=== PATIENT | female | born 1945 | race Caucasian/White ===

== ENCOUNTER 2025-01-15 21:13 | Inpatient (IN) | payer MEDICARE, OTHER ==
[~2025-01-15] VITALS: Ht 149.9 cm; Wt 39.5 kg
[2025-01-15 21:56] LABS: COVID AG,FIA SOURCE NASAL SWAB
[2025-01-15 22:00] LABS: APPEARANCE,URINE CLEAR (CLEAR); GLUCOSE, URINE (UA) >=1000 mg/dL (NEGATIVE); LEUKOCYTE ESTERASE ,URINE NEGATIVE (NEGATIVE); NITRATE,URINE NEGATIVE (NEGATIVE); OCCULT BLOOD,URINE NEGATIVE (NEGATIVE); PH,URINE DRUG SCREEN 5.5 (5.0-8.0); SPECIFIC GRAVITIY, URINE 1.032 (1.003-1.030)
[2025-01-15 22:05] LABS: PLATELET COUNT (AUTO) 248 K/uL (150-450); RED BLOOD CELL COUNT(AUTO) 4.55 MIL/uL (4.00-5.20); RED CELL DISTRIBUTION WIDTH 13.3 % (11.5-14.5); WHITE BLOOD COUNT (AUTO) 8.9 K/uL (4.5-11.0)
[2025-01-15 22:07] LABS: AMPHET/METH SCREEN,URINE NEGATIVE (NEGATIVE); BARBITURATE SCREEN, URINE NEGATIVE (NEGATIVE); CANNABINOID SCREEN,URINE NEGATIVE (NEGATIVE); COCAINE SCREEN,URINE NEGATIVE (NEGATIVE); METHADONE SCREEN, URINE NEGATIVE (NEGATIVE)
[2025-01-15 22:08] LABS: ALCOHOL, URINE DRUG SCREEN NEGATIVE (NEGATIVE)
[2025-01-15 22:13] LABS: CALCIUM, TOTAL 9.1 mg/dL (8.8-10.5); CREATININE 0.85 mg/dL (0.60-1.30); GLOMERULAR FILTR. RATE CALC > 60 mL/min (>60); SODIUM SERUM 132 mmol/L (136-145); UREA NITROGEN, BLOOD 20 mg/dL (7-18)
[2025-01-15 22:15] LABS: SARS-COV2 (COVID) ANTIGEN,FIA Negative (Negative)
[2025-01-15 22:17] LABS: GLUCOSE,RANDOM 425 mg/dL (70-110)
[2025-01-15 22:33] LABS: SQUAMOUS EPITHELIAL CELL,UR Rare /LPF (None Seen)
[2025-01-15] MEDS: SODIUM CHLORIDE 0.9% 1,000 ML IV ONE (22:49)
[2025-01-15] MEDS: INSULIN REGULAR, HUMAN 100 UNITS/ML IVP ONE (22:56)
[2025-01-16] MEDS ORDERED: ZOLPIDEM TARTRATE 10 MG TABLET PO PRN (00:45)
[2025-01-16 04:19] VITALS: BP 124/95; PULSE 66; RESP 17; TEMP 97.1; O2SAT 99
[2025-01-16 05:19] VITALS: BP 124/95; PULSE 66; RESP 17; TEMP 97.1; O2SAT 99
[2025-01-16 07:25] LABS: GLUCOMETER DEV NAME(LOC) BV3N.2; GLUCOSE,POINT OF CARE 324 MG/DL (70-110)
[2025-01-16 08:36] VITALS: BP 139/65; PULSE 71; RESP 16; TEMP 97.9; O2SAT 97
[2025-01-16] MEDS: INSULIN LISPRO 100 UNITS/ML SQ PRN (11:12)
[2025-01-16] MEDS ORDERED: GLUCAGON,HUMAN RECOMBINANT 1 MG VIAL IM PRN (11:15)
[2025-01-16 11:26] LABS: GLUCOMETER DEV NAME(LOC) BV3N.2; GLUCOSE,POINT OF CARE 399 MG/DL (70-110)
[2025-01-16] MEDS ORDERED: OLANZapine 5 MG RAPDIS TABLET PO PRN (12:15)
[2025-01-16] MEDS ORDERED: ACETAMINOPHEN 325 MG TABLET PO PRN (12:15)
[2025-01-16] MEDS ORDERED: LOPERAMIDE HCL 2 MG CAPSULE PO PRN (12:15)
[2025-01-16] MEDS ORDERED: PROMETHAZINE HCL 25 MG TABLET PO PRN (12:15)
[2025-01-16] MEDS ORDERED: MAGNESIUM HYDROXIDE SUSPENSION 30 ML UDCUP PO PRN (12:15)
[2025-01-16] MEDS ORDERED: GuaiFENesin/D-METHORPHAN [SUGAR-FREE] 200-20MG/10 ML SYRUP UDCUP PO PRN (12:15)
[2025-01-16] MEDS ORDERED: MAG HYDROX/ALUMINUM HYD/SIMETH ES 30 ML SUSPENSION UDCUP PO PRN (12:15)
[2025-01-16] MEDS: THIAMINE 100 MG TABLET PO SCH (16:34)
[2025-01-16] MEDS: OMEGA-3/DHA/EPA/FISH OIL 500 MG CAPSULE PO SCH (16:35)
[2025-01-16] MEDS: TUBERCULIN, PURIFIED PROTEIN DERIVATIVE 5 TU/0.1 ML SYRINGE ID ONE (16:35)
[2025-01-16 16:50] LABS: GLUCOMETER DEV NAME(LOC) BV3N.2; GLUCOSE,POINT OF CARE 334 MG/DL (70-110)
[2025-01-16 20:18] VITALS: BP 125/65; PULSE 61; RESP 18; TEMP 97.7; O2SAT 98
[2025-01-16 20:26] LABS: GLUCOMETER DEV NAME(LOC) BV3N.2; GLUCOSE,POINT OF CARE 252 MG/DL (70-110)
[2025-01-16] MEDS: OLANZapine 5 MG RAPDIS TABLET PO SCH (20:45)
[2025-01-16] MEDS: INSULIN GLARGINE,HUM.REC.ANLOG 100 UNITS/ML SQ SCH (20:52)
[2025-01-17 06:25] LABS: GLUCOMETER DEV NAME(LOC) BV3N.2; GLUCOSE,POINT OF CARE 193 MG/DL (70-110)
[2025-01-17 08:12] VITALS: BP 116/65; PULSE 69; RESP 16; TEMP 97.6; O2SAT 97
[2025-01-17] MEDS: MULTIVITAMINS WITH MINERALS, THERAPEUTIC TABLET PO SCH (09:00)
[2025-01-17] MEDS: FOLIC ACID 1 MG TABLET PO SCH (09:00)
[2025-01-17 12:25] LABS: GLUCOMETER DEV NAME(LOC) BV3N.2; GLUCOSE,POINT OF CARE 241 MG/DL (70-110)
[2025-01-17 16:21] LABS: GLUCOMETER DEV NAME(LOC) BV3N.2; GLUCOSE,POINT OF CARE 351 MG/DL (70-110)
[2025-01-17 20:17] VITALS: BP 128/75; PULSE 83; RESP 17; TEMP 97.2; O2SAT 98
[2025-01-17] MEDS: OLANZapine 10 MG RAPDIS TABLET PO SCH (21:00)
[2025-01-17 21:06] LABS: GLUCOMETER DEV NAME(LOC) BV3N.2; GLUCOSE,POINT OF CARE 205 MG/DL (70-110)
[2025-01-18 06:31] LABS: GLUCOMETER DEV NAME(LOC) BV3N.2; GLUCOSE,POINT OF CARE 100 MG/DL (70-110)
[2025-01-18 08:47] VITALS: BP 110/69; PULSE 79; RESP 16; TEMP 97.6; O2SAT 100
[2025-01-18 11:30] LABS: GLUCOMETER DEV NAME(LOC) BV3N.2; GLUCOSE,POINT OF CARE 286 MG/DL (70-110)
[2025-01-18 16:45] LABS: GLUCOMETER DEV NAME(LOC) BV3N.2; GLUCOSE,POINT OF CARE 306 MG/DL (70-110)
[2025-01-18 20:25] LABS: GLUCOMETER DEV NAME(LOC) BV3N.2; GLUCOSE,POINT OF CARE 200 MG/DL (70-110)
[2025-01-18] MEDS: OLANZapine 5 MG RAPDIS TABLET PO SCH (20:33)
[2025-01-18 20:58] VITALS: BP 134/65; PULSE 87; RESP 16; TEMP 97.3; O2SAT 97
[2025-01-19 06:35] LABS: GLUCOMETER DEV NAME(LOC) BV3N.2; GLUCOSE,POINT OF CARE 90 MG/DL (70-110)
[2025-01-19 08:48] VITALS: BP 120/79; PULSE 87; RESP 18; TEMP 97; O2SAT 98
[2025-01-19 12:26] LABS: GLUCOMETER DEV NAME(LOC) BV3N.2; GLUCOSE,POINT OF CARE 185 MG/DL (70-110)
[2025-01-19 16:55] LABS: GLUCOMETER DEV NAME(LOC) BV3N.2; GLUCOSE,POINT OF CARE 269 MG/DL (70-110)
[2025-01-19 20:45] LABS: GLUCOMETER DEV NAME(LOC) BV3N.2; GLUCOSE,POINT OF CARE 243 MG/DL (70-110)
[2025-01-20 06:26] LABS: GLUCOMETER DEV NAME(LOC) BV3N.2; GLUCOSE,POINT OF CARE 137 MG/DL (70-110)
[2025-01-20 08:26] VITALS: PULSE 97; RESP 16; TEMP 97.6; O2SAT 96
[2025-01-20 08:55] LABS: CHOL/HDL RATIO 5.0 (3.9-5.7); LDL CHOL (CALC.) 166.0 mg/dL (0-130)
[2025-01-20 11:21] LABS: GLUCOMETER DEV NAME(LOC) BV3N.2; GLUCOSE,POINT OF CARE 291 MG/DL (70-110)
[2025-01-20 17:05] LABS: GLUCOMETER DEV NAME(LOC) BV3N.2; GLUCOSE,POINT OF CARE 300 MG/DL (70-110)
[2025-01-20 20:32] VITALS: BP 136/72; PULSE 80; RESP 17; TEMP 97.8; O2SAT 98
[2025-01-20 21:35] LABS: GLUCOMETER DEV NAME(LOC) BV3N.2; GLUCOSE,POINT OF CARE 158 MG/DL (70-110)
[2025-01-21 06:56] LABS: GLUCOMETER DEV NAME(LOC) BV3N.2; GLUCOSE,POINT OF CARE 103 MG/DL (70-110)
[2025-01-21 08:40] VITALS: RESP 16
[2025-01-21 09:52] VITALS: BP 141/61; PULSE 83; RESP 16; TEMP 97.2; O2SAT 97
[2025-01-21 11:21] LABS: GLUCOMETER DEV NAME(LOC) BV3N.2; GLUCOSE,POINT OF CARE 229 MG/DL (70-110)
[2025-01-21 17:00] LABS: GLUCOMETER DEV NAME(LOC) BV3N.2; GLUCOSE,POINT OF CARE 289 MG/DL (70-110)
[2025-01-21 21:10] LABS: GLUCOMETER DEV NAME(LOC) BV3N.2; GLUCOSE,POINT OF CARE 247 MG/DL (70-110)
[2025-01-21] MEDS ORDERED: FLUO-341 PO (22:44)
[2025-01-21] MEDS ORDERED: OLAN5TAB94 PO (22:45)
[2025-01-21] MEDS ORDERED: OMEG-287 PO (22:45)
[2025-01-21] MEDS ORDERED: MELA5TAB40 PO (22:45)
[2025-01-21 23:10] VITALS: BP 131/63; PULSE 85; RESP 18; TEMP 97.7
[2025-01-22 06:15] LABS: GLUCOMETER DEV NAME(LOC) BV3N.2; GLUCOSE,POINT OF CARE 150 MG/DL (70-110)
[2025-01-22 08:38] VITALS: BP 138/75; PULSE 100; RESP 18; TEMP 97.8; O2SAT 99
[2025-01-22 12:06] LABS: GLUCOMETER DEV NAME(LOC) BV3N.2; GLUCOSE,POINT OF CARE 212 MG/DL (70-110)
[2025-01-22] MEDS ORDERED: METF-1211 PO (16:10)
[2025-01-22 16:56] LABS: GLUCOMETER DEV NAME(LOC) BV3N.2; GLUCOSE,POINT OF CARE 259 MG/DL (70-110)
[2025-01-22 20:35] VITALS: BP 140/77; PULSE 90; RESP 18; TEMP 97.2; O2SAT 98
[2025-01-23] MEDS ORDERED: OLAN5TAB94 PO (16:29)
[2025-01-23] MEDS ORDERED: FLUO-418 PO (16:29)
== END 2025-01-22 20:52 | disposition home or self-care (01) | DRG 885 ==
LOC: EMS 21:27 → B3A 01-16 02:08
PROVIDERS: ADMIT Psychiatry & Neurology Psychiatry; ATTEND Psychiatry & Neurology Psychiatry
PROC: GZHZZZZ Group Psychotherapy (ICD-10-PCS; principal; 2025-01-16)
PROC: GZ51ZZZ Individual Psychotherapy, Behavioral (ICD-10-PCS; 2025-01-16)
PROC: GZ58ZZZ Individual Psychotherapy, Cognitive-Behavioral (ICD-10-PCS; 2025-01-16)
PROC: GZ56ZZZ Individual Psychotherapy, Supportive (ICD-10-PCS; 2025-01-17)
DX: F20.9 Schizophrenia, unspecified (principal); E10.65 Type 1 diabetes mellitus with hyperglycemia; I10 Essential (primary) hypertension; Z20.822 Contact with and (suspected) exposure to COVID-19; Z55.9 Problems related to education and literacy, unspecified; Z59.9 Problem related to housing and economic circumstances, unspecified; Z63.9 Problem related to primary support group, unspecified; Z65.3 Problems related to other legal circumstances
CPT/HCPCS: 80048; 80061; 80307; 81001; 82009; 82962; 84439; 84443; 85025; 86592; 96360; 99285; G0480; J1815; 36415-L1; 36415-TC